=== PATIENT | female | born 1970 | race Caucasian/White ===

== ENCOUNTER 2019-07-11 05:56 | Day surgery (SDC) | payer BC ==
[2019-07-06 14:14] LABS: CLARITY,URINE CLEAR (Clear); COLOR,URINE STRAW (Yellow); GLUCOSE, URINE NEGATIVE (Neg); KETONES,URINE NEGATIVE (Neg); LEUKOCYTE ESTERASE ,URINE NEGATIVE (Neg); NITRITES, URINE NEGATIVE (Neg); OCCULT BLOOD,URINE NEGATIVE (Neg); PROTEIN,URINE NEGATIVE (Neg); UROBILINOGEN,URINE 0.2 E.U/dL (0.2-1.0)
[2019-07-06 14:20] LABS: UA COLLECTION TYPE VOIDED
[2019-07-06 15:36] LABS: BASOPHILS % (AUTO) 0.6 % (0-1); EOSINOPHILS # (AUTO) 0.2 X10'3 (0-0.9); EOSINOPHILS % (AUTO) 2.2 % (0-6); LYMPHOCYTES # (AUTO) 2.2 X10'3 (1.1-4.8); LYMPHOCYTES % (AUTO) 25.5 % (21-51); MEAN CORPUSCULAR HEMOGLOBIN 28.7 PG (27.0-31.0); MEAN CORPUSCULAR HGB CONC 32.9 g/dL (33.0-36.5); MEAN CORPUSCULAR VOLUME 87.2 FL (78-98); MEAN PLATELET VOLUME 7.3 FL (7.4-10.4); MONOCYTES # (AUTO) 0.9 X10'3 (0-0.9); MONOCYTES % (AUTO) 10.2 % (2-12); NEUTROPHILS # (AUTO) 5.3 X10'3 (1.8-7.7); NEUTROPHILS % (AUTO) 61.5 % (42-75); PRE OP HEMATOCRIT 41.2 % (35.0-45.0); PRE OP HEMOGLOBIN 13.6 g/dL (12.0-16.0); PRE OP PLATELET COUNT 399 X10'3 (140-440); RED BLOOD COUNT 4.72 X10'6 (4.20-5.60); RED CELL DISTRIBUTION WIDTH 14.6 % (11.5-14.5)
[2019-07-06 15:45] LABS: ALBUMIN 3.8 G/DL (3.4-5.0); ALBUMIN/GLOBULIN RATIO 0.9 (1.1-1.5); ALKALINE PHOSPHATASE 85 IU/L (46-116); BLOOD UREA NITROGEN 7 MG/DL (7-18); BUN/CREATININE RATIO 10.8 (6.6-38.0); CALCIUM 9.6 MG/DL (8.5-10.1); CHLORIDE 105 MMOL/L (99-107); CREATININE 0.65 MG/DL (0.40-0.90); PRE OP ALT 57 U/L (30-65); PRE OP ANION GAP 8 (8-16); PRE OP AST 26 U/L (10-37); PRE OP BILIRUB, TOTAL 0.2 MG/DL (0.0-1.0); PRE OP GLUCOSE 94 MG/DL (70-104); PRE OP POTASSIUM 3.8 MMOL/L (3.4-5.1); PRE OP SODIUM 140 MMOL/L (135-145); TOTAL CARBON DIOXIDE 26.9 MMOL/L (24-32); TOTAL PROTEIN 8.2 G/DL (6.4-8.2); eGFR > 90 ML/MIN
[2019-07-06 15:49] LABS: PRE OP INR < 0.9 INR; PRE OP PARTIAL THROMB. TIME 27 SECONDS (22-32); PRE OP PROTIME 9.8 SECONDS (9.0-12.0)
[2019-07-11] VITALS (18 sets, daily range): BP systolic 140–173; BP diastolic 64–106
[~2019-07-11] VITALS: Ht 165.1 cm; Wt 102.1 kg
[~2019-07-11 05:56] MED LIST: ACTIFED PO; CETI10TA14 PO; DIM PO; MULT-1096 PO; ceFOXitin 2 GM ADDvantage bag 100 ML IV ONE; famotidine 20mg tablet PO ONE; ringers solution, lacted 1,000 ML IV SCH
[2019-07-11] MEDS ORDERED: ceFAZolin 1000mg inj ONE (06:48)
[2019-07-11] MEDS ORDERED: LIDOcaine 1% 30ml preserv. free vial ONE (06:48)
[2019-07-11] MEDS ORDERED: vasoPRESSIN 20 units/ml inj. ONE (06:49)
[2019-07-11] MEDS ORDERED: BUPIVAcaine/PF 2.5 mg/ml (0.25%) 30ml vial ONE (06:49)
[2019-07-11] MEDS ORDERED: clindamycin phosphate 40gm vag cream ONE (06:50)
[2019-07-11] MEDS ORDERED: morphine 10mg/ml inj. ONE (06:50)
[2019-07-11] MEDS ORDERED: midazolam 2 mg/2 ml injection ONE (07:49)
[2019-07-11] MEDS ORDERED: fentaNYL /PF 50mcg/ml 5ml ampule ONE (07:49)
[2019-07-11] MEDS ORDERED: propofol inj 20 ML IV ONE (08:55)
[2019-07-11] MEDS ORDERED: ondansetron/PF 4mg/2ml inj ONE (08:55)
[2019-07-11] MEDS ORDERED: rocuronium 10mg/ml inj IV ONE (08:55)
[2019-07-11] MEDS ORDERED: glycopyrrolate 0.2mg/ml inj ONE (08:55)
[2019-07-11] MEDS ORDERED: neostigmine methylsulfate 1 MG/ML 10ml vial ONE (08:55)
[2019-07-11] MEDS ORDERED: LIDOcaine 2% (20mg/ml) 5ml vial ONE (08:55)
[2019-07-11] MEDS ORDERED: dexamethasone sod phosphate 4mg/ml inj. ONE (08:55)
[2019-07-11] MEDS ORDERED: ringers solution, lacted 1,000 ML IV SCH (08:58)
[2019-07-11] MEDS ORDERED: meperidine/PF 25mg/ml syringe IV PRN ×3 (09:00)
[2019-07-11] MEDS ORDERED: morphine 4 MG/ML inj SYRINge IV PRN ×2 (09:00)
[2019-07-11] MEDS ORDERED: ondansetron/PF 4mg/2ml inj IV PRN ×2 (09:00→11:15)
[2019-07-11] MEDS ORDERED: proCHLORperazine 10 MG/2 ml inj IV PRN (09:00)
[2019-07-11] MEDS ORDERED: fluoroscein sod 10% (100mg/ml) 5ml vial ONE (10:33)
[2019-07-11] MEDS ORDERED: meperidine/PF 50mg/ml syringe ONE (10:39)
--- NOTE | 2019-07-11 10:55 | NUR ---
ADMITTED TO PACU FROM OR ACCOMPANIED BY ANESTHESIA. INTIAL PHYSICAL ASSESSMENT DONE AND RECORDED. AWAKE AND RESPONSE ON ARRIVE YO PACU, REPORT RECEIVED FROM ANESTHESIA.
[2019-07-11] MEDS ORDERED: naloxone 0.4 mg/ml inj IV PRN (11:15)
[2019-07-11] MEDS ORDERED: temazepam 15mg capsule PO PRN (11:15)
[2019-07-11] MEDS ORDERED: normal saline 500ml IV soln 500 ML IV PRN (11:15)
[2019-07-11] MEDS ORDERED: diphenhydrAMINE 50 mg/ml inj IV PRN (11:15)
[2019-07-11] MEDS ORDERED: CADD PCA waste documentation MC PRN (11:15)
[2019-07-11] MEDS ORDERED: acetaminophen w/codeine (30MG) #3 tablet PO PRN ×2 (11:15)
[2019-07-11] MEDS: ringers solution, lacted 1,000 ML IV SCH ×3 (11:15→23:40)
[2019-07-11] MEDS: HYDROmorphone/NS 1 mg/ml CADD 50 ML IV SCH ×6 (11:36→23:00)
--- NOTE | 2019-07-11 11:59 | NUR ---
Report received from Evelyne GUTIERREZ in recovery.
--- NOTE | 2019-07-11 12:00 | NUR ---
PACU DISCHARGE CRITERIA MET, REPORT GIVEN TO FLOOR. DENIES PAIN OR DISCOMFORT, TRANSFERRED TO ROOM IN STABLE GOOD CONDITION.
[2019-07-11] MEDS ORDERED: HYDROmorphone/NS 1 mg/ml CADD 50 ML IV SCH (13:00)
[2019-07-11] MEDS: ketorolac trometh. 30mg/ml inj. IV PRN ×2 (14:00→20:22)
[2019-07-11] MEDS: simethicone 80mg chew tab PO SCH ×2 (14:00→18:22)
--- NOTE | 2019-07-11 18:15 | NUR ---
Problems reprioritized. Patient report given, questions answered & plan of care reviewed with Deyanira GUTIERREZ.
--- NOTE | 2019-07-11 18:24 | NUR ---
Problems reprioritized. Patient report given, questions answered & plan of care reviewed with MATT Mcmillan.
--- NOTE | 2019-07-11 18:30 | NUR ---
Patient in room [facility]. I have received report from Charlette GUTIERREZ and had the opportunity to ask questions and assume patient care.
--- NOTE | 2019-07-11 19:18 | NUR ---
Patient in room [facility]. I have received report from Deyanira GUTIERREZ and had the opportunity to ask questions and assume patient care. Pt sitting up in bed A/O. She just finished her dinner. On 2L via N/C with LR running at 125 and Dilaudid CADD. Pt has no signs of distress, will continue to monitor.
[2019-07-11] MEDS: docusate sod 100mg capsule PO SCH (20:17)
[2019-07-12] MEDS: HYDROmorphone/NS 1 mg/ml CADD 50 ML IV SCH ×9 (01:00→17:00)
[2019-07-12 04:00] VITALS: BP 121/42
[2019-07-12 05:05] LABS: BASOPHILS % (AUTO) 0.2 % (0-1); EOSINOPHILS % (AUTO) 0 % (0-6); HEMATOCRIT 34.4 % (35.0-45.0); HEMOGLOBIN 11.4 g/dl (12.0-16.0); LYMPHOCYTES # (AUTO) 1.2 X10'3 (1.1-4.8); LYMPHOCYTES % (AUTO) 9.6 % (21-51); MEAN CORPUSCULAR HGB CONC 33.2 g/dL (33.0-36.5); MEAN CORPUSCULAR VOLUME 87.2 FL (78-98); MEAN PLATELET VOLUME 7.4 FL (7.4-10.4); MONOCYTES # (AUTO) 1.2 X10'3 (0-0.9); MONOCYTES % (AUTO) 9.7 % (2-12); NEUTROPHILS # (AUTO) 10.1 X10'3 (1.8-7.7); NEUTROPHILS % (AUTO) 80.5 % (42-75); PLATELET COUNT 346 X10'3 (140-440); RED BLOOD COUNT 3.95 X10'6 (4.20-5.60); RED CELL DISTRIBUTION WIDTH 14.2 % (11.5-14.5); WHITE BLOOD COUNT 12.5 X10'3 (4.5-11.0)
--- NOTE | 2019-07-12 06:14 | NUR ---
Problems reprioritized. Patient report given, questions answered & plan of care reviewed with Shayy RN.
--- NOTE | 2019-07-12 06:15 | NUR ---
Patient in room . I have received report from MATT Carrasco and had the opportunity to ask questions and assume patient care.
[2019-07-12] MEDS: ketorolac trometh. 30mg/ml inj. IV PRN ×2 (07:03→13:38)
[2019-07-12 08:00] VITALS: BP 133/72
[2019-07-12] MEDS: simethicone 80mg chew tab PO SCH ×2 (08:47→13:39)
[2019-07-12] MEDS: docusate sod 100mg capsule PO SCH (08:48)
[2019-07-12 12:00] VITALS: BP 137/58
--- NOTE | 2019-07-12 17:30 | NUR ---
Patient discharged with all belongings, IV taken out, and assisted by nursing staff to lobby in wheelchair. Patient stable, pleasant, plan of care discussed and pt understands that she has a follow up with Dr. Gongora on 07/27/2019 already scheduled.
== END 2019-07-12 17:39 | disposition home or self-care (01) ==
LOC: PAS 05:56 → SUR 3N 11:24 → PAS 07-12 17:39
PROVIDERS: ATTEND Specialist
DX: N94.6 Dysmenorrhea, unspecified (principal); N92.0 Excessive and frequent menstruation with regular cycle; N81.4 Uterovaginal prolapse, unspecified; N36.42 Intrinsic sphincter deficiency (ISD); N39.3 Stress incontinence (female) (male); F41.9 Anxiety disorder, unspecified; F32.9 Major depressive disorder, single episode, unspecified; E66.9 Obesity, unspecified; Z68.37 Body mass index [BMI] 37.0-37.9, adult; Z98.890 Other specified postprocedural states; Z88.5 Allergy status to narcotic agent; Z88.0 Allergy status to penicillin; Z79.899 Other long term (current) drug therapy; Z79.82 Long term (current) use of aspirin; Z79.01 Long term (current) use of anticoagulants; Z80.1 Family history of malignant neoplasm of trachea, bronchus and lung; Z82.49 Family history of ischemic heart disease and other diseases of the circulatory system; Z80.41 Family history of malignant neoplasm of ovary
CPT/HCPCS: 36415; 57240; 57288; 57425; 58552; 80053; 81003; 82948; 85025; 85610; 85730; 86885; 86900; 86901; C1771; J0690; J0694; J1100; J1170; J1200; J1885; J2001; J2175; J2250; J2270; J2405; J2704; J2710; J3010; J3490; J7120; A4215; A4314; A4355; A4618; A6250; A6258; A7000; G0378

== ENCOUNTER 2024-02-05 13:54 | Outpatient (CLI) | payer SELFPAY ==
[~2024-02-05 13:54] MED LIST changes: -MULT-1096 PO; +MULT-1166 PO; -ceFOXitin 2 GM ADDvantage bag 100 ML IV ONE; -famotidine 20mg tablet PO ONE; -ringers solution, lacted 1,000 ML IV SCH
== END 2024-02-05 23:59 | disposition home or self-care (01) ==
LOC: RAD 13:54
PROVIDERS: ATTEND Nurse Practitioner Primary Care
DX: R00.1 Bradycardia, unspecified (principal); R07.9 Chest pain, unspecified
CPT/HCPCS: 93005